=== PATIENT | female | born 1965 | race Caucasian/White ===

== ENCOUNTER 2018-11-19 19:06 | Observation (INO) ==
[2018-11-19] MEDS ORDERED: Nitroglycerin 1 INCH/GM PACKET TP ONE (19:12)
--- NOTE | 2018-11-19 19:18 | Emergency Department Note ---
Disposition Clinical Impression: Atypical chest pain, SVT (supraventricular tachycardia) Disposition: Admitted As Inpatient Condition: Good Chest Pain HPI - General Chief Complaint: ED Chest Pain Stated Complaint: "Heart racing", Chest pain onset 17:00 Time Seen by Provider: 11/19/18 19:12 Source: patient, EMS Mode of arrival: EMS Limitations: no limitations Vital Signs Reviewed: Yes Nursing Notes Reviewed: Yes - History of Present Illness HPI Narrative: Patient presents for [facility] with history of elevated heart rate and some chest pain. The EMS squad documented a heart rate of 150 on a twelve-lead. This appeared to be a regular rhythm consistent with more of an SVT. They did start an IV, administered aspirin and nitroglycerin and she arrives here pain- free with a normal sinus rhythm and a rate of about 80. Patient states that her chest pain started about 5 PM and that her chest felt "fast and pressure". This discomfort did not radiate from her anterior chest. She states she did get sweaty, nauseated and short of health. She denies anything like this before. She denies change of medicines. She has not had any type of decongestant or increased caffeine. She was bowling with others from the [facility] today. At time of my exam she states her heart feels "kind of racy". She relates she otherwise feels well at this time. The patient did have EKGs obtained by EMS. At 6:30 PM she demonstrated a sinus tachycardia that converted to normal sinus rhythm over the course of the tracing. The overall rate was [address] or T-wave changes. A second EKG performed at 6:37 PM had what appears to be in SVT with a rate of 150. There are no acute ST or T-wave changes for ischemia or infarction. This is on my interpretation. 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 Denies: vomiting, syncope, fever, cough, leg swelling Treatments prior to arrival chest pain: aspirin, nitroglycerin, oxygen - Related Data Home Medications Medication Instructions Recorded Confirmed Loratadine [Allergy Relief] 10 mg PO DAILY 08/05/17 11/19/18 clonazePAM [Klonopin] 0.5 mg PO BID 08/05/17 11/19/18 Previous Rx's Medication Instructions Recorded Ibuprofen [Motrin] 600 mg PO Q6HR PRN #20 tab 05/21/16 Olopatadine HCl [Pataday] 1 drop OP BID #1 drops 08/05/17 Allergies Allergy/AdvReac Type Severity Reaction Status Date / Time Penicillins [PCN] Allergy Rash Verified 08/05/17 14:01 All systems ED: reviewed and negative except as stated. 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 Absent: scleral icterus, conjunctival injection - ENT ENT exam: normal exam, normal oropharynx, mucous membranes moist - Neck Neck exam: Present: normal inspection, full ROM, trachea midline - Chest Chest inspection: Present: normal inspection, symmetric chest wall rise - Respiratory Respiratory exam: Present: normal lung sounds bilaterally. Absent: respiratory distress, wheezes, prolonged expiratory phase - Cardiovascular Cardiovascular exam: Present: regular rate, normal rhythm, normal heart sounds. Absent: tachycardia, JVD - Abdominal Exam Abdominal exam: Present: soft, Non-Tender, normal bowel sounds. Absent: tenderness, distention, guarding, rebound, rigidity - Extremities Exam Extremities exam: Present: normal inspection, full ROM, normal capillary refill. Absent: tenderness, pedal edema, calf tenderness - Expanded Lower Extremity Exam Neurovascular/Tendon exam: Present: normal capillary refill. Absent: motor deficit, sensory deficit, tendon deficit Gait: not tested/not observed - Back Exam Back exam: Present: normal inspection, full ROM. Absent: tenderness - Neurological Exam Neurological exam: Present: alert. Absent: motor sensory deficit - Psychiatric Psychiatric exam: Present: normal affect, normal mood. Absent: agitated, anxious - Skin Skin exam: Present: warm, dry, intact, normal color. Absent: cyanosis, diaphoresis, pallor Course Course Narrative: 2100: Care is been discussed with Dr. Churchill. He would like to start metoprolol for rate control. She is given a first dose of 25 mg orally and then to continue tomorrow morning at 12.5 mg twice a day. She will be trended on troponins. Verbal orders have been obtained for her observation. Vital Signs Temperature 98.0 F 11/19/18 19:09 Pulse Rate 89 11/19/18 19:09 Respiratory Rate 16 11/19/18 19:09 Blood Pressure 131/91 11/19/18 19:09 O2 Sat by Pulse Oximetry 98 11/19/18 19:09 Temperature 98.0 F 11/19/18 19:09 Pulse Rate 97 11/19/18 20:40 Respiratory Rate 16 11/19/18 20:40 Blood Pressure 138/81 11/19/18 20:40 O2 Sat by Pulse Oximetry 97 11/19/18 20:40 Oxygen Delivery Oxygen Delivery Room Air Chest Pain - Differential Diagnosis Likely: atypical chest pain (SVT), costalchondritis, chest pain - Lab Data Lab results reviewed: Yes I reviewed the patient's lab results. Result diagrams: 11/19/18 19:33 11/19/18 19:33 Lab Results 11/19/18 11/19/18 11/19/18 Range/Units 19:33 19:33 19:33 WBC 11.1 (4.3-11.1) K/mcL RBC 4.33 (3.82-4.97) M/mcL Hgb 10.9 L (11.5-15.4) g/dL Hct 35.0 L (35.3-44.9) % MCV 80.8 L (83.0-100.0) fL MCH 25.2 L (28.0-33.3) pg MCHC 31.1 L (31.6-35.5) g/dL RDW 15.9 H (11.5-14.5) % Plt Count 237 (140-400) K/mcL MPV 9.7 (9.4-12.4) fL Immature Gran % 0.5 (0-4) % Seg Neutrophils % 73.1 % Lymphocytes % 16.7 % Monocytes % 7.7 % Eosinophils % 1.5 % Basophils % 0.5 % Neutrophils # 8.1 (1.6-8.9) K/mcL Lymphocytes # 1.9 (0.6-4.6) K/mcL Monocytes # 0.9 (0.0-1.3) K/mcL Eosinophils # 0.2 (0.0-0.6) K/mcL Basophils # 0.1 (0.0-0.2) K/mcL PT 10.7 (9.4-12.1) Seconds INR 1.0 APTT 25.3 L (26.0-36.0) Seconds Sodium (136-145) mEq/L Potassium (3.5-5.1) mEq/L Chloride (98-107) mEq/L Carbon Dioxide (23-29) mEq/L BUN (6-20) mg/dL Creatinine (0.60-1.20) mg/dL Est GFR ( Amer) (> 60) Est GFR (Non-Af Amer) (> 60) BUN/Creatinine Ratio (6-26) Glucose (70-105) mg/dL Calculated Osmolality (280-300) Calcium (8.6-10.3) mg/dL Troponin I (< 0.04) ng/mL B-Natriuretic Peptide 28 (Less than 100) pg/mL 11/19/18 Range/Units 19:33 WBC (4.3-11.1) K/mcL RBC (3.82-4.97) M/mcL Hgb (11.5-15.4) g/dL Hct (35.3-44.9) % MCV (83.0-100.0) fL MCH (28.0-33.3) pg MCHC (31.6-35.5) g/dL RDW (11.5-14.5) % Plt Count (140-400) K/mcL MPV (9.4-12.4) fL Immature Gran % (0-4) % Seg Neutrophils % % Lymphocytes % % Monocytes % % Eosinophils % % Basophils % % Neutrophils # (1.6-8.9) K/mcL Lymphocytes # (0.6-4.6) K/mcL Monocytes # (0.0-1.3) K/mcL Eosinophils # (0.0-0.6) K/mcL Basophils # (0.0-0.2) K/mcL PT (9.4-12.1) Seconds INR APTT (26.0-36.0) Seconds Sodium 140 (136-145) mEq/L Potassium 3.7 (3.5-5.1) mEq/L Chloride 108 H (98-107) mEq/L Carbon Dioxide 21 L (23-29) mEq/L BUN 11 (6-20) mg/dL Creatinine 0.63 (0.60-1.20) mg/dL Est GFR ( Amer) > 60 (> 60) Est GFR (Non-Af Amer) > 60 (> 60) BUN/Creatinine Ratio 17 (6-26) Glucose 149 H (70-105) mg/dL Calculated Osmolality 292 (280-300) Calcium 8.9 (8.6-10.3) mg/dL Troponin I < 0.03 (< 0.04) ng/mL B-Natriuretic Peptide (Less than 100) pg/mL - Radiology Data Radiology results reviewed: Yes I reviewed the patient's radiology results. Single view chest x-ray is performed. This does not demonstrate evidence for infiltrate, effusion, pneumothorax, foreign body or heart failure. The cardiac silhouette is normal. I do not see abnormality to the osseous structures of the chest. This is on my interpretation. Impressions Chest X-Ray 11/19/18 19:13 IMPRESSION: No acute cardiopulmonary abnormality appreciated. D/ / Bobby Borden MD / Bobby Borden MD Interpreting Provider: Bobby Borden MD - EKG Data EKG attestation: Yes I reviewed and interpreted this EKG. EKG results narrative: EKG #1: Sinus rhythm with rate of 88, axis of 67, MT interval of 137 and a QT/QTC of 376/455. There are no acute ST or T-wave changes for ischemia or infarction. This is on my interpretation. EKG #2: Sinus tachycardia with rate of 158, axis of 47, MT interval of 132 and a QT/QTC 302/490. She has not show ST or T-wave changes for ischemia or infarction. This is on my interpretation. Heart Score - Score History: Moderately Suspicious EKG: Normal Age: 45-65 Risk Factors: 1-2 risk factors Troponin: Less than normal limit HEART Score Total: 3
[2018-11-19 19:42] LABS: Basophils # 0.1 K/mcL (0.0-0.2); Basophils % 0.5 %; Eosinophils # 0.2 K/mcL (0.0-0.6); Eosinophils % 1.5 %; Hemoglobin 10.9 g/dL (11.5-15.4); Immature Granulocytes % 0.5 % (0-4); Lymphocytes # 1.9 K/mcL (0.6-4.6); Lymphocytes % 16.7 %; Mean Corpuscular HGB Conc 31.1 g/dL (31.6-35.5); Mean Corpuscular Hemoglobin 25.2 pg (28.0-33.3); Mean Corpuscular Volume 80.8 fL (83.0-100.0); Mean Platelet Volume 9.7 fL (9.4-12.4); Monocytes # 0.9 K/mcL (0.0-1.3); Monocytes % 7.7 %; Neutrophils # 8.1 K/mcL (1.6-8.9); Platelet Count 237 K/mcL (140-400); Red Blood Count 4.33 M/mcL (3.82-4.97); Red Cell Distribution Width 15.9 % (11.5-14.5); Segmented Neutrophils % 73.1 %
[2018-11-19 19:54] LABS: Prothrombin Time 10.7 Seconds (9.4-12.1)
[2018-11-19 19:57] LABS: Activated Partial Thrombo Time 25.3 Seconds (26.0-36.0)
[2018-11-19 20:05] LABS: BUN/Creatinine Ratio 17 (6-26); Blood Urea Nitrogen 11 mg/dL (6-20); Calcium 8.9 mg/dL (8.6-10.3); Carbon Dioxide 21 mEq/L (23-29); Chloride 108 mEq/L (98-107); Glucose 149 mg/dL (70-105); Osmolality,Calculated 292 (280-300); Potassium 3.7 mEq/L (3.5-5.1); Sodium 140 mEq/L (136-145); eGFR For Non-African Americans > 60 (> 60)
[2018-11-19 20:06] LABS: Troponin I < 0.03 ng/mL (< 0.04)
[2018-11-19] MEDS ORDERED: Ondansetron ODT 4 MG TAB.RAPDIS SL PRN (22:06)
[2018-11-19] MEDS ORDERED: Naloxone 0.4 MG/ML INJ IVP PRN (22:06)
[2018-11-19] MEDS ORDERED: Mag Hydrox/Al Hydrox/Simeth 30 ML UDC PO PRN (22:06)
[2018-11-19] MEDS ORDERED: MOM Conc 10 ML UD.LIQ PO PRN (22:06)
[2018-11-19] MEDS: 0.9 % Sodium Chloride 1,000 ML IVC SCH (22:45)
[2018-11-19] MEDS: Ibuprofen 600 MG TABLET PO PRN (23:08)
[2018-11-20] MEDS: 0.9 % Sodium Chloride 1,000 ML IVC SCH (06:31)
[2018-11-20 08:31] VITALS: BP 128/77
[2018-11-20] MEDS: Ibuprofen 600 MG TABLET PO PRN (08:31)
[2018-11-20] MEDS ORDERED: Loratadine 10 MG TABLET PO SCH (09:00)
[2018-11-20] MEDS ORDERED: clonazePAM 0.5 MG TABLET PO SCH (09:00)
[2018-11-20] MEDS ORDERED: Olopatadine Hcl [Pataday] OP SCH (09:00)
--- NOTE | 2018-11-20 14:16 | Internal Med History&Physical ---
Date of Encounter: 11/20/18 Time of Encounter: 13:45 Assessment and Plan (1) SVT (supraventricular tachycardia) Current visit: Yes Status: Acute She was started on low-dose metoprolol in emergency room and is now in normal sinus rhythm. Etiology possibly related to consumption of Mountain Dew. Thyroid testing, anemia profile, and urine tox screen will be ordered prior to discharge. (2) Microcytic anemia Current visit: Yes Status: Acute Anemia testing will be ordered. Internal Medicine - H&P: HPI Chief complaint: Tachycardia Admitted From: Emergency Dept Plans for Post Hospital Care: Home History of present illness: Ms. Gongora is a 52 year old female who came to emergency room stating she had onset of rapid heart rate approximately 5 PM after she completed recreational bowling approximately one hour earlier. She states she had a can of Mountain Dew prior to onset of the rapid heart rate. She had a sensation of tachycardia but denies other significant chest pain. She was evaluated in emergency room and admitted to [facility] floor for ongoing care needs. She states she feels back to her baseline now and wishes to be discharged home. She reports she had a cup of Mountain Dew at approximately 11 AM yesterday also. She states she rarely drinks Mountain Dew. She does not drink alcohol and uses only 1 cup decaf coffee daily. She denies previous episodes of tachycardia. She denies hypertension ND heart failure angina DVT or pulmonary embolus. Past Med Surg Social Fam HX - Past Medical History Medical history: asthma, hyperlipidemia, other Additional medical history: NO CAREGIVER WITH PATIENT PMH LIMITED Psychiatric history: anxiety, depression - Past Surgical History Surgical History: no surgical history - Social History Smoking Status: Unknown if ever smoked Smokeless Tobacco Status: No Alcohol use: none Drug use: none Internal Medicine - H&P: Meds Ibuprofen [Motrin] 600 mg PO Q6HR PRN #20 tab 05/21/16 [Rx] Loratadine [Allergy Relief] 10 mg PO DAILY 08/05/17 [History] Olopatadine HCl [Pataday] 1 drop OP BID #1 drops 08/05/17 [Rx] clonazePAM [Klonopin] 0.5 mg PO BID 08/05/17 [History] Allergy/AdvReac Type Severity Reaction Status Date / Time Penicillins [PCN] Allergy Rash Verified 08/05/17 14:01 All Systems PM: A 10-system review of systems was performed and is negative for pertinent findings except as documented above in the HPI. Review of systems: Gen.: She states her weight is been stable for several months Cardiovascular: As per history of present illness Respiratory: She is a lifelong nonsmoker. She reports a history of asthma. GI: She denies disorders of her liver gallbladder or exocrine pancreas : She denies hematuria dysuria or kidney stones Neurologic: She denies large distribution strokes or seizures. She has a diagnosis of MRDD. Endocrine: She denies diabetes thyroid disease or hyperlipidemia Hematology/oncology: She was unaware she had anemia on labs in emergency room. She reports using ibuprofen rarely at home. She denies aspirin use. She denies internal malignancies or other blood disorders. Psychiatric: She has anxiety but denies depression or other mental health issues [place] skeletal: She states she has occasional leg pain. She denies gout or other bone joint or muscle disorders. - Constitutional Vitals: Temp Pulse Resp BP Pulse Ox 98.1 F 95 16 128/77 97 11/20/18 08:17 11/20/18 08:17 11/20/18 08:17 11/20/18 08:17 11/20/18 09:57 Exam: Gen.: She is a well-developed well-nourished female resting comfortably on the side of bed who appears in no acute distress HEENT: Head is atraumatic and normocephalic. Eyes: EOMI. There is no scleral icterus. Mouth: Mucosa is moist. Neck: Supple and nontender. There is no thyromegaly or adenopathy noted. Heart: Regular without murmurs gallops or ectopics Lungs: No wheezes or crackles are heard. Abdomen: Soft and nontender. No masses or guarding are noted. Extremities: There is no cyanosis edema or clubbing noted. Dorsalis pedis and posttibial pulses are 1-2 over 2 bilaterally. Neurologic: Mental status: He is talkative and a fairly good historian. She has a slight speech impediment. Cranial nerves: Smile is symmetric. Forehead wr inkles bilaterally. Tongue protrudes midline. EOMI. Motor: There is no pronator drift. Cerebellar: Fair to nose is intact bilaterally. Skin: Warm and dry Internal Med - H&P Results - Labs CBC & Chem 7: 11/19/18 19:33 11/19/18 19:33 Labs: Short CBC 11/19/18 Range/Units 19:33 WBC 11.1 (4.3-11.1) K/mcL Hgb 10.9 L (11.5-15.4) g/dL Hct 35.0 L (35.3-44.9) % Plt Count 237 (140-400) K/mcL Neutrophils # 8.1 (1.6-8.9) K/mcL BMP 11/19/18 19:33 Sodium 140 Potassium 3.7 Chloride 108 H Carbon Dioxide 21 L BUN 11 Creatinine 0.63 Glucose 149 H Calcium 8.9 Cardiac Enzymes 11/19/18 11/20/18 11/20/18 Range/Units 19:33 01:20 07:11 Troponin I < 0.03 < 0.03 < 0.03 (< 0.04) ng/mL - Impressions ITS Impressions Chest X-Ray 11/19/18 19:13 IMPRESSION: No acute cardiopulmonary abnormality appreciated. D/ / Bobby Borden MD / Bobby Borden MD Interpreting Provider: Bobby Borden MD
--- NOTE | 2018-11-20 14:28 | Discharge Summary ---
Orders not resulted at time of discharge: Pending orders 11/20/18 14:16 Ferritin Routine Folate Routine Iron Profile Routine Thyroid Stimulating Hormone Routine Vitamin B12 Routine 11/20/18 14:19 Drug Screen, Urine [UCHEM] Routine Date of Encounter: 11/20/18 Time of Encounter: 13:45 - Discharge Diagnosis (1) SVT (supraventricular tachycardia) Priority: Primary Status: Acute (2) Microcytic anemia Priority: Secondary Status: Acute Hospital course: Ms. Gongora is a 52 year old female who came to emergency room stating she had onset of rapid heart rate approximately 5 PM after she completed recreational bowling approximately one hour earlier. She states she had a can of Mountain Dew prior to onset of the rapid heart rate. She had a sensation of tachycardia but denies other significant chest pain. She was evaluated in emergency room and admitted to [facility] for ongoing care needs. Initial orders were written by the emergency room physician. I saw her on November 20 and performed a history physical and discharge. She had no further episodes of tachycardia/PSVT. It is uncertain if her consumption of Mountain Dew played a role in causing the tachycardia. TSH, urine tox screen, and anemia testing were ordered prior to discharge home. Her PCP can follow up on these results. She was started on low-dose metoprolol in emergency room. She will continue metoprolol as Toprol-XL 25 mg daily at discharge. I encouraged her to discontinue consumption of Mountain Dew. I also encouraged her to stop ibu profen. Her PCP can determine the duration needed for Toprol-XL. She will be discharged home and follow with her PCP Dr. Perdomo within 1 week. - Time Spent with Patient Total time spent providing and/or coordinating discharge services: - Discharge Medications Prescriptions: New Metoprolol XL (24 HR) Succ [Toprol XL] 25 mg PO DAILY #30 tab.er.24h Continue clonazePAM [Klonopin] 0.5 mg PO BID Loratadine [Allergy Relief] 10 mg PO DAILY Olopatadine HCl [Pataday] 1 drop OP BID #1 drops Discontinued Ibuprofen [Motrin] 600 mg PO Q6HR PRN #20 tab PRN Reason: Pain Home Medications: Loratadine [Allergy Relief] 10 mg PO DAILY 08/05/17 [History] Olopatadine HCl [Pataday] 1 drop OP BID #1 drops 08/05/17 [Rx] clonazePAM [Klonopin] 0.5 mg PO BID 08/05/17 [History] Metoprolol XL (24 HR) Succ [Toprol XL] 25 mg PO DAILY #30 tab.er.24h 11/20/18 [Rx] Allergies/Adverse Reactions: Allergy/AdvReac Type Severity Reaction Status Date / Time Penicillins [PCN] Allergy Rash Verified 08/05/17 14:01 Date of admission: 11/19/18 21:09 Primary care physician: Jenny Perdomo - Constitutional Vitals: Temp Pulse Resp BP Pulse Ox 98.1 F 95 16 128/77 97 11/20/18 08:17 11/20/18 08:17 11/20/18 08:17 11/20/18 08:17 11/20/18 09:57 - Patient Status Disposition: Home, Self-Care Condition: Good - Discharge Instructions Follow Up With: Jenny Perdomo MD [Primary Care Provider] - - Diet and Activity Activity: resume usual activities as tolerated
[2018-11-20 15:07] LABS: Amphetamine Screen,Urine Negative ng/mL (Cutoff=1000); Barbiturate Screen,Urine Negative ng/mL (Cutoff=200); Benzodiazepines Screen,Urine Negative ng/mL (Cutoff=200); Cannabinoid Screen,Urine Negative ng/mL (Cutoff = 50); Cocaine Screen,Urine Negative ng/mL (Cutoff= 300); Opiate Screen,Urine Negative ng/mL (Cutoff=300); Phencyclidine Screen,Urine Negative ng/mL (Cutoff=25)
[2018-11-20 15:54] LABS: Thyroid Stimulating Hormone 5.669 mcIU/mL (0.340-5.600)
--- NOTE | 2018-11-20 17:16 | Electrocardiograph Report ---
[place] [address] Test Date: 2018-11-19 Pat Name: Amy Gongora Department: EDP-14 Room: [facility] Gender: F Clinical Secretary: : 1965 Requested By: Devang Sena Order Number: [id number] Reading MD: Jennifer Edward Measurements Intervals [place] Rate: 88 P: 54 AR: 137 QRS: 67 QRSD: 94 T: 70 QT: 376 QTc: 455 Interpretive Statements Sinus rhythm Electronically Signed On 11-20-2018 17:15:05 EDT by Jennifer Edward
--- NOTE | 2018-11-20 17:18 | Electrocardiograph Report ---
[place] [address] Test Date: 2018-11-19 Pat Name: Amy Gongora Department: EDP-14 Room: [facility] Gender: F Certified Nursing Assistant Instructor: : 1965 Requested By: Devang Sena Order Number: [id number] Reading MD: Jennifer Edward Measurements Intervals [place] Rate: 158 P: 67 NV: 132 QRS: 47 QRSD: 83 T: 28 QT: 302 QTc: 490 Interpretive Statements Sinus tachycardia Borderline T wave abnormalities Borderline prolonged QT interval Electronically Signed On 11-20-2018 17:16:43 EDT by Jennifer Edward
[2018-11-20 17:46] LABS: Folate 11.1 ng/mL (3.0-16.0)
[2018-11-20 20:49] LABS: % Iron Saturation 6 % (15-50); Iron 32 mcg/dL (50-170); Transferrin 412 mg/dL (203-362)
[2018-11-20 21:17] LABS: Ferritin < 8 ng/mL (10-120)
== END 2018-11-20 16:57 | disposition home or self-care (01) ==
LOC: INPPIK 19:06 → EMEROOPIK 19:06 → INPPIK 21:45
PROVIDERS: ADMIT Internal Medicine; ATTEND Internal Medicine